=== PATIENT | male | born 1990 | race Caucasian/White ===

== ENCOUNTER 2021-07-08 01:22 | Emergency (ER) | payer SELFPAY ==
[~2021-07-08] VITALS: Ht 175.3 cm; Wt 77.1 kg
[2021-07-08] MEDS: ONDANSETRON 4 MG/2 ML VIAL IM ONE (02:15)
[2021-07-08] MEDS: LIDOCAINE 1%-EPI 1:100,000 20 ML VIAL MC ONE (02:15)
[2021-07-08] MEDS: HYDROMORPHONE 1 MG/1 ML DISP.SYRIN IM ONE (02:15)
[2021-07-08] MEDS: TDAP DIPH,PERTUSS,TET VAC/PF 0.5 ML DISP.SYRIN IM ONE (02:15)
[2021-07-08] MEDS: LET TOPICAL SOLUTION 8 ML UDC MC ONE (02:15)
[2021-07-08] MEDS ORDERED: LET TOPICAL SOLUTION 8 ML UDC ONE (02:49)
[2021-07-08] MEDS ORDERED: HYDROMORPHONE 1 MG/1 ML DISP.SYRIN ONE (03:55)
[2021-07-08] MEDS ORDERED: TDAP DIPH,PERTUSS,TET VAC/PF 0.5 ML DISP.SYRIN IM ONE (03:55)
[2021-07-08] MEDS: SODIUM BICARBONATE 4.2 % (NEUT) 5 ML VIAL TP ONE (04:00)
[2021-07-08] MEDS: CEphaleXIN 500 MG CAPSULE PO ONE (04:00)
[2021-07-08] MEDS ORDERED: CLINDAMYCIN HCL 300 MG CAPSULE ONE (04:07)
[2021-07-08] MEDS ORDERED: CLINDAMYCIN 900MG/D5W 100ML IVPB **ER PYXIS ONLY IJ ONE (04:08)
[2021-07-08 05:06] VITALS: BP 109/75
[2021-07-08 05:31] LABS: HEMATOCRIT 44.3 % (36.7-47.1); MEAN CORPUSCULAR HEMOGLOBIN 30.8 uug (23.8-33.4); MEAN CORPUSCULAR VOLUME 90.9 fL (73.0-96.2); PLATELET COUNT (AUTO) 363 K/uL (152-348)
[2021-07-08 05:41] LABS: BILIRUBIN,DIRECT 0.1 mg/dL (0.0-0.2); BILIRUBIN,TOTAL 0.2 mg/dL (0.2-1.0); CREATININE 1.1 mg/dL (0.6-1.3); POTASSIUM 3.7 mmol/L (3.5-5.1); TOTAL PROTEIN, SERUM 8.4 g/dL (6.4-8.2)
== END 2021-07-08 04:30 | disposition home or self-care (01) ==
LOC: ER 01:30
DX: S02.69XA Fracture of mandible of other specified site, initial encounter for closed fracture (principal); S01.81XA Laceration without foreign body of other part of head, initial encounter; S02.40CA Maxillary fracture, right side, initial encounter for closed fracture; S62.111A Displaced fracture of triquetrum [cuneiform] bone, right wrist, initial encounter for closed fracture; W18.30XA Fall on same level, unspecified, initial encounter; Y92.89 Other specified places as the place of occurrence of the external cause; R55 Syncope and collapse; S00.83XA Contusion of other part of head, initial encounter; S02.5XXA Fracture of tooth (traumatic), initial encounter for closed fracture; R94.31 Abnormal electrocardiogram [ECG] [EKG]
CPT/HCPCS: 12011 ×2; 29125; 36415; 70450; 70486; 73110; 80048; 80076; 85025; 90471; 90715; 96372; 99285; J1170; J2405; J3490 ×3; A4663